=== PATIENT | female | born 2000 | race African-American/Black ===

== ENCOUNTER 2025-07-20 16:18 | Emergency (ER) | payer MEDICAID ==
[~2025-07-20] VITALS: Ht 167.6 cm; Wt 85.0 kg
[~2025-07-20 16:18] MED LIST: CRAN250C MT
[2025-07-20 16:19] VITALS: O2SAT 100
[2025-07-20 16:23] VITALS: BP 128/89; PULSE 98; RESP 16; TEMP 36.9; O2SAT 100
[2025-07-20] MEDS: CEFTRIAXONE SODIUM 500MG VIAL IM ONE (18:26)
[2025-07-20] MEDS ORDERED: DOXY100T2 MT (19:11)
[2025-07-23 05:12] LABS: CHLAMYDIA TRACHOMATIS NAA Negative (Negative); NEISSERIA GONORRHOEAE NAA Negative (Negative)
== END 2025-07-20 19:25 | disposition left against medical advice (07) ==
LOC: ER 16:18
DX: A64 Unspecified sexually transmitted disease (principal); Z87.440 Personal history of urinary (tract) infections; F12.90 Cannabis use, unspecified, uncomplicated
CPT/HCPCS: 99283; 87491; 87591; 81025; 96372; J0696